=== PATIENT | female | born 1965 | race Caucasian/White ===

== ENCOUNTER 2018-02-11 14:36 | Emergency (ER) | payer SELFPAY ==
[2018-02-11 14:50] VITALS: BP 143/98; PULSE 86; TEMP 98.1; BMI 30.9
--- NOTE | 2018-02-11 16:13 | PDOC ---
History of Present Illness - General Chief Complaint: Edema Stated Complaint: FALL Time Seen by Provider: 02/11/18 15:52 - History of Present Illness Initial Comments: patient is a 52 year old female, with a significant past medical history of HTN and chronic LE swelling, who presents to the emergency department complaining of worsening BL LE edema after recent trip to [place]. Pt states she normally experiences chronic LE edema when remaining on feet, ambulating and during the summer months. Pt states she started experiencing BL LE edema when on trip to [place] a few days ago, saw a doctor and received HCTZ 12.5 with minimal diuresis. Pt recently switched from HCTZ/losartan pill to norvasc 10mg daily for HTN in September, for which she is compliant. Pt also noted a mechanical fall one month ago down stairs for which she endorses a headstrike. Pt states she has been experiencing chronic HAs 2-3x a week since fall, primarily in R posterior CRUZ and neck, alleviated with tylenol/ advil. No FNDs or other neuro symptoms noted. Pt has not been seen by neurologist. Patient denies chest pain, palpitations, shortness of breath or dizziness. Denies fever, chills, nausea, vomiting, diarrhea and constipation. Denies dysuria, frequency, urgency and hematuria. Denies vision changes, gait changes. Allergies: None Past surgical history: ESTRADA-BSO 2007 Social History: No smoking, alcohol or drug use PMD: Dr. Lubin 02/11/18 16:07 Past History - Past Medical History Allergies/Adverse Reactions: Allergies Allergy/AdvReac Type Severity Reaction Status Date / Time No Known Allergies Allergy Verified 02/11/18 14:45 Home Medications: Ambulatory Orders Amlodipine Besylate [Norvasc -] 5 mg PO DAILY 10/10/14 Hydrochlorothiazide [Hctz -] 25 mg PO DAILY 10/10/14 COPD: No HTN: Yes - Suicide/Smoking/Psychosocial Hx Smoking History: Never smoked Have you smoked in the past 12 months: No Hx Alcohol Use: No Substance Use Type: None Review of Systems - Review of Systems Comments:: GENERAL/CONSTITUTIONAL: No fever or chills. No weakness. HEAD, EYES, EARS, NOSE AND THROAT: No change in vision. No ear pain or discharge. No sore throat. CARDIOVASCULAR: No chest pain or shortness of breath. +LE edema RESPIRATORY: No cough, wheezing, or hemoptysis. GASTROINTESTINAL: No nausea, vomiting, diarrhea or constipation. GENITOURINARY: No dysuria, frequency, or change in urination. MUSCULOSKELETAL: No joint or muscle swelling or pain. Neck pain 2-3x per week. SKIN: No rash NEUROLOGIC: CRUZ 2-3x per week, vertigo, loss of consciousness, or change in strength/sensation. ENDOCRINE: No increased thirst. No abnormal weight change HEMATOLOGIC/LYMPHATIC: No anemia, easy bleeding, or history of blood clots. ALLERGIC/IMMUNOLOGIC: No hives or skin allergy. 02/11/18 16:07 *Physical Exam - Vital Signs Last Vital Signs Temp Pulse Resp BP Pulse Ox 98.1 F 86 19 143/98 99 02/11/18 14:45 02/11/18 14:45 02/11/18 14:45 02/11/18 14:45 02/11/18 14:45 - Physical Exam Comments: GENERAL: Middle aged woman, Awake, alert, and fully oriented, in no acute distress HEAD: NCAT, no bruises, fractures or bony deformities EYES: PERRLA, EOMI, sclera anicteric, conjunctiva clear ENT: Auricles normal inspection, hearing grossly normal, nares patent, oropharynx clear without exudates. Moist mucosa NECK: Normal ROM, supple, no lymphadenopathy, JVD, or masses LUNGS: No distress, speaks full sentences, clear to auscultation bilaterally HEART: Regular rate and rhythm, normal S1 and S2, no murmurs, rubs or gallops, peripheral pulses normal and equal bilaterally. ABDOMEN: Soft, nontender, normoactive bowel sounds. No guarding, no rebound. No masses EXTREMITIES : 1+ pitting edema in LEs. Normal inspection, Normal range of motion , no edema. No clubbing or cyanosis. NEUROLOGICAL: Cranial nerves II through XII grossly intact. Normal speech, normal gait, no focal sensorimotor deficits SKIN: Warm, Dry, normal turgor, no rashes or lesions noted 02/11/18 16:08 ED Treatment Course - LABORATORY CBC & Chemistry Diagram: 02/11/18 17:25 02/11/18 17:25 Medical Decision Making - Medical Decision Making 52 yo w/ with pmh of HTN, presenting with multiple days of LE edema in setting of recent plane travel from [place] yesterday, taking norvasc for HTN. Pt likely experiencing LE edema secondary to recent plane travel and medication side effect. Will send cbc, bmp, BNP and LE duplex to r/o DVT. Pt also complaining of chronic CRUZ 2-3x per week after recent fall down stairs with headstrike. Will order CT scan to evaluate for possible chronic bleed or intracranial lesion. Will likely require outpt neuro f/u. 02/11/18 18:[address] grossly normal. Labs notable for K of 3.3, no other abnormalities. Will discharge pt home with f/u with PMD and referral for neurology. 02/11/18 19:03 *DC/Admit/Observation/Transfer Diagnosis at time of Disposition: Lower extremity edema, Chronic headache - Discharge Dispostion Disposition: HOME Condition at time of disposition: Good Decision to Admit order: No - Referrals Referrals: Tania Garcia MD [Primary Care Provider] - 1 week Jeet Stover MD [Staff Physician] - 1 week - Patient Instructions Printed Discharge Instructions: DI for Hypokalemia, DI for Post-traumatic Headache, DI for Peripheral Edema -- Bilateral Additional Instructions: You were evaluated for swelling in your lower extremities and chronic headache. You received a CT scan which was normal. You received standard labs were only notable for mildly depleted potassium. You are being discharged home with follow -up with your primary medical doctor. Please discuss change your blood pressure medication with your primary medical doctor, as you are currently taking Norvasc which can cause lower extremity swelling. Please elevated your legs above your heart for at least an hour per day at night to help with this swelling. You are also being referred to Dr. Stover, our hospital neurologist, for evaluation of your post-concussive headaches. His contact number will be provided in your discharge packet. Please call his office to follow-up with him. Please return to the hospital if you experience any of the following symptoms: - Worsening lower extremity swelling - Palpitations or irregular heart beat - Persistent shortness of breath - Any vision changes, numbness or tingling in your arms or legs, persistent dizziness or difficulty walking - Any new or concerning symptoms - Post Discharge Activity
--- NOTE | 2018-02-11 16:24 | PDOC ---
Attending Attestation - HPI HPI: 02/11/18 17:47 The patient is a 77 year old female with past medical history of hypertension and chronic lower extremity swelling who presents to the ED with worsening bilateral lower extremity edema since visiting [place] recently. While in [place] , the patient saw a doctor who prescribed her a dose of hydrochlorothiazide which she received minimal relief. She reports having changed hypertension medications back in September. Additionally she reports a fall x1 month ago in which she fell down a flight of stairs and struck her head. Although she didnt experience any acute symptoms right after the fall, she reports developing chronic headaches in her right posterior head and right neck and states she has been experiencing them 2-3 times a week. She denies any focal neurological deficits. She denies any fever, chills, nausea, vomiting, diarrhea, cough, SOB, or urinary symptoms. - Physicial Exam PE: 02/11/18 17:47 GENERAL: Awake, alert, and fully oriented, in no acute distress HEAD: No signs of trauma EYES: PERRLA, EOMI, sclera anicteric, conjunctiva clear ENT: Auricles normal inspection, hearing grossly normal, nares patent, oropharynx clear without exudates. Moist mucosa NECK: Normal ROM, supple, no lymphadenopathy, JVD, or masses LUNGS: Breath sounds equal, clear to auscultation bilaterally. No wheezes, and no crackles HEART: Regular rate and rhythm, normal S1 and S2, no murmurs, rubs or gallops ABDOMEN: Soft, nontender, normoactive bowel sounds. No guarding, no rebound. No masses EXTREMITIES: 3+ ptting edema from knees down. No calf tenderness. Normal DP pulses. Normal range of motion. No clubbing or cyanosis. No cords, erythema, or tenderness NEUROLOGICAL: Cranial nerves II through XII grossly intact. Normal speech, normal gait SKIN: Warm, Dry, normal turgor, no rashes or lesions noted. - Medical Decision Making 02/11/18 17:48 Documentation prepared by Jaylyn Gongora, acting as medical technologist hematology for Mey Karimi DO. <Jaylyn Gongora - Last Filed: 02/11/18 17:47> - Resident Resident Name: Brannon Pink - ED Attending Attestation I have performed the following: I have examined & evaluated the patient, The case was reviewed & discussed with the resident, I agree w/resident's findings & plan, Exceptions are as noted - Medical Decision Making 02/11/18 16:24 I, Dr. Mey Karimi, DO, attest that this document has been prepared under my direction and personally reviewed by me in its entirety. I further attest, that it accurately reflects all work, treatment, procedures and medical decision -making performed by me. 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
[2018-02-11 18:25] LABS: BASO % 0.8 % (0-2.0); EOS % 1.7 % (0-4.5); HEMATOCRIT 43.8 % (32.4-45.2); LYMPH % 38.7 % (8-40); MCH 30.5 pg (25.7-33.7); MCHC 34.2 g/dl (32.0-36.0); NEUT % 52.8 % (42.8-82.8); PLATELET COUNT 273 K/MM3 (134-434); RBC 4.93 M/mm3 (3.60-5.2); RDW 13.2 % (11.6-15.6); WHITE BLOOD COUNT 5.5 K/mm3 (4.0-10.0)
[2018-02-11 18:36] LABS: ALBUMIN 4.6 g/dl (3.4-5.0); ANION GAP 7 (8-16); BILIRUBIN,TOTAL 0.5 mg/dL (0.2-1.0); BLOOD UREA NITROGEN 10 mg/dL (7-18); CALCIUM 9.3 mg/dL (8.5-10.1); CHLORIDE 103 mmol/L (98-107); CO2 30 mmol/L (21-32); CREATININE 0.6 mg/dL (0.55-1.02); GLUCOSE,RANDOM 100 mg/dL (74-106); POTASSIUM 3.3 mmol/L (3.5-5.1); SGOT/AST 26 U/L (15-37); SGPT/ALT 31 U/L (12-78); SODIUM 140 mmol/L (136-145)
[2018-02-11 18:38] LABS: ALK PHOS 114 U/L (45-117); N-TERMINAL BNP 27.45 pg/ml (5-125)
== END 2018-02-11 22:36 | disposition home or self-care (01) ==
LOC: JER 14:36
DX: R60.0 Localized edema (principal); F07.81 Postconcussional syndrome; G44.329 Chronic post-traumatic headache, not intractable; E87.6 Hypokalemia; I10 Essential (primary) hypertension; W10.9XXA Fall (on) (from) unspecified stairs and steps, initial encounter; Y93.89 Activity, other specified; Y92.89 Other specified places as the place of occurrence of the external cause; Y99.8 Other external cause status
CPT/HCPCS: 36415; 70450-TC; 80053; 83880; 85025; 93970-TC; 99282-25

== ENCOUNTER 2021-03-24 22:58 | Emergency (ER) | payer OTHER ==
[2021-03-24 23:08] VITALS: BP 156/89; PULSE 93; TEMP 98.7; BMI 33.3
[2021-03-24] MEDS ORDERED: DIPHTH,PERTUSS(ACELL),TET 0.5 ML DISP.SYRIN IM ONE (23:41)
[2021-03-25] MEDS ORDERED: DIPHTH,PERTUSS(ACELL),TET 0.5 ML DISP.SYRIN IM ONE (00:08)
== END 2021-03-25 00:35 | disposition home or self-care (01) ==
LOC: JER 22:58
PROC: 3E0234Z Introduction of Serum, Toxoid and Vaccine into Muscle, Percutaneous Approach (ICD-10-PCS; principal; 2021-03-24)
DX: S61.412A Laceration without foreign body of left hand, initial encounter (principal)
CPT/HCPCS: 90471; 90715; 99284-25

== ENCOUNTER → 2022-04-18 | Day surgery (SDC) | payer OTHER | END | disposition home or self-care (01) | LOC: FMAMMOTONE 09:59 | PROVIDERS: ATTEND Internal Medicine | PROC: 0HBU3ZX Excision of Left Breast, Percutaneous Approach, Diagnostic (ICD-10-PCS; principal; 2022-04-18) | DX: N60.12 Diffuse cystic mastopathy of left breast (principal); N60.32 Fibrosclerosis of left breast; N64.89 Other specified disorders of breast; R92.0 Mammographic microcalcification found on diagnostic imaging of breast | CPT/HCPCS: 19081; 76098-TC-FY; 87899; 88305-TC; A4648 ==